=== PATIENT | male | born 1995 | race Hispanic/Latino ===

== ENCOUNTER 2025-01-18 05:01 | Emergency (ER) | payer SELFPAY ==
--- NOTE | 2025-01-18 06:22 | ER ---
Nurse's Notes [facility] Name: Mathieu Vallejo Jr Age: 29 yrs Sex: Male : 1995 Arrival Date: 01/18/2025 Time: 05:01 Bed 15 Private MD: Diagnosis: Cough Presentation: 01/18 05:21 Chief complaint: Patient states: PROD COUGH, CHILLS, LEFT CHEST WALL PAIN. DENIES br2 N/V/D. Coronavirus screen: Client denies travel out of the [place] in the last 14 days. Ebola Screen: Patient denies exposure to infectious person. Initial Sepsis Screen: Does the patient meet any 2 criteria? No. Patient's initial sepsis screen is negative. Does the patient have a suspected source of infection? No. Patient's initial sepsis screen is negative. Risk Assessment: Do you want to hurt yourself or someone else? Patient reports no desire to harm self or others. Onset of symptoms was January 14, 2025. 05:21 Method Of Arrival: Ambulatory br2 05:21 Acuity: CONNIE 3 br2 Triage Assessment: 05:23 General: Appears in no apparent distress. comfortable, Behavior is calm, cooperative. br2 Pain: Complains of pain in anterior aspect of left upper chest Pain currently is 6 out of 10 on a pain scale. Historical: - Allergies: 05:23 No Known Allergies; br2 - PMHx: 05:23 None; br2 - PSHx: 05:23 pacemaker; br2 - Immunization history:: Adult Immunizations not up to date. - Infectious Disease History:: Denies. - Social history:: Smoking status: Patient/guardian denies using tobacco, Patient/guardian denies using alcohol, street drugs. - Family history:: not pertinent. - Hospitalizations: : No recent hospitalization is reported. Screenin:[address] [facility] ED Fall Risk Assessment (Adult) History of falling in the last 3 months, tb4 including since admission No falls in past 3 months (0 pts) Confusion or Disorientation No (0 pts) Intoxicated or Sedated No (0 pts) Impaired Gait No (0 pts) Mobility Assist Device Used No (0 pt) Altered Elimination No (0 pt) Score/Fall Risk Level 0 - 2 = Low Risk Oriented to surroundings, Maintained a safe environment, Educated pt \T\ family on fall prevention, incl call for assistance when getting out of bed. Abuse screen: Denies threats or abuse. Nutritional screening: No deficits noted. Tuberculosis screening: No symptoms or risk factors identified. Assessment: 05:30 Reassessment: Patient is alert, oriented x 3, equal unlabored respirations, skin tb4 warm/dry/pink. See triage note. General: Appears in no apparent distress. Behavior is calm, cooperative, Smells of. Pain: Complains of pain in left clavicle and anterior aspect of left upper chest Pain does not radiate. Pain currently is 6 out of 10 on a pain scale. Quality of pain is described as pressure, Pain began gradually, Is continuous. Neuro: Level of Consciousness is awake, alert, obeys commands, Oriented to person, place, time, situation, [place] are Moves all extremities. Full function Gait is steady. Cardiovascular: Capillary refill < 3 seconds is brisk in right fingers. Respiratory: Reports cough that is non-productive, Airway is patent Trachea midline Respiratory effort is even, unlabored, Respiratory pattern is regular, symmetrical, Breath sounds are clear bilaterally. GI: No signs and/or symptoms were reported involving the gastrointestinal system. : No signs and/or symptoms were reported regarding the genitourinary system. EENT: No signs and/or symptoms were reported regarding the EENT system. Vital Signs: 05:21 BP 144 / 88; Pulse 71; Resp 18 S; Temp 96.5(TE); Pulse Ox 100% on R/A; Weight 90.72 kg; br2 Height 5 ft. 11 in. ; 05:30 BP 156 / 98; Pulse 68; Resp 18; Pulse Ox 97% on R/A; Pain 6/10; tb4 06:48 BP 134 / 78; Pulse 81; Resp 18; Pulse Ox 100% on R/A; tb4 05:21 Body Mass Index 27.89 (90.72 kg, 180.34 cm) br2 05:30 Pain Scale: Adult tb4 ED Course: 05:04 Patient arrived in ED. gm2 05:06 Jay Jackson MD is Attending Physician. rn 05:23 Triage completed. br2 05:23 Arm band placed on right wrist. br2 05:30 Patient has correct armband on for positive identification. Call light in reach. Side tb4 rails up X 1. Client placed on continuous cardiac and pulse oximetry monitoring. NIBP monitoring applied. Door closed. 05:30 EKG done, by ED staff. tb4 05:58 XRAY Chest (1 view) In Process Unspecified. EDMS 06:11 No provider procedures requiring assistance completed. tb4 06:49 Provided Education on: Take medication as prescribed. tb4 06:49 Patient did not have IV access during this emergency room visit. tb4 Administered Medications: 06:35 Drug: AZITHromycin PO 500 mg PO once Route: PO; tb4 06:48 Follow up: Response: No adverse reaction tb4 Medication: 05:30 VIS not applicable for this client. tb4 Outcome: 06:21 Discharge ordered by . rn 06:49 Discharged to home ambulatory, tb4 06:49 Condition: stable 06:49 Discharge instructions given to patient, Instructed on discharge instructions, follow up and referral plans. Demonstrated understanding of instructions, follow-up care, medications, Prescriptions given X 1, 06:50 Patient left the ED. tb4 Signatures: Dispatcher [employer] EDMS Jay Jackson MD MD rn Mitchell, Ginger gm2 Lisset Daugherty RN RN br2 Citlali Crain RN RN tb4
--- NOTE | 2025-01-18 06:22 | EDPHYS ---
Physician Documentation [facility] Name: Mathieu Vallejo Jr Age: 29 yrs Sex: Male : 1995 Arrival Date: 01/18/2025 Time: 05:01 Bed 15 Private MD: ED Physician Jay Jackson HPI: 01/18 05:48 This 29 yrs old Male presents to ER via Ambulatory with complaints of Cough, rn Congestion, slight chest pain./ heart history. 05:48 Patient reports 2 days of cough, congestion, runny nose. Denies shortness of breath. rn Reports productive cough. Patient denies any chest pain. Has a history of hypertrophic cardiomyopathy and status post AICD placement and has not had any issues since then. Patient reports multiple sick contacts and feels sick. Denies shortness of breath. Historical: - Allergies: 05:23 No Known Allergies; br2 - PMHx: 05:23 None; br2 - PSHx: 05:23 pacemaker; br2 - Immunization history:: Adult Immunizations not up to date. - Infectious Disease History:: Denies. - Social history:: Smoking status: Patient/guardian denies using tobacco, Patient/guardian denies using alcohol, street drugs. - Family history:: not pertinent. - Hospitalizations: : No recent hospitalization is reported. ROS: 05:48 Constitutional: Positive for subjective fever and chills Cardiovascular: Negative for rn chest pain, palpitations, and edema, Respiratory: Positive for cough, negative for shortness of breath Abdomen/GI: Negative for abdominal pain, nausea, vomiting, diarrhea, and constipation, MS/Extremity: Negative for injury and deformity, Skin: Negative for injury, rash, and discoloration, Neuro: Negative for headache, weakness, numbness, tingling, and seizure, Exam: 05:48 Constitutional: This is a well developed, well nourished patient who is awake, alert, rn and in no acute distress. Cardiovascular: Regular rate and rhythm. No pulse deficits. Respiratory: Speaking full sentences, unlabored. No increased work of breathing, no retractions or nasal flaring. Skin: No cyanosis 06:10 ECG was reviewed by the Attending Physician. rn Vital Signs: 05:21 BP 144 / 88; Pulse 71; Resp 18 S; Temp 96.5(TE); Pulse Ox 100% on R/A; Weight 90.72 kg; br2 Height 5 ft. 11 in. ; 05:30 BP 156 / 98; Pulse 68; Resp 18; Pulse Ox 97% on R/A; Pain 6/10; tb4 06:48 BP 134 / 78; Pulse 81; Resp 18; Pulse Ox 100% on R/A; tb4 05:21 Body Mass Index 27.89 (90.72 kg, 180.34 cm) br2 05:30 Pain Scale: Adult tb4 MDM: 05:06 Medical Screening Exam initiated rn 06:18 Differential Diagnosis: Bronchitis Upper Respiratory Infection Viral Syndrome rn Pneumonia. Data reviewed: vital signs, nurses notes, radiologic studies, plain films, and as a result, I will discharge patient. Independent interpretation of the following test(s) in the Emergency Department X-Ray: My interpretation is Chest x-ray images negative for pneumonia or pneumothorax per my interpretation. Stable cardiomegaly compared to previous chest x-rays. Care significantly affected by the following chronic conditions: Hypertension. Counseling: I had a detailed discussion with the patient and/or guardian regarding the historical points, exam findings, and any diagnostic results supporting the discharge/admit diagnosis, the presence of at least one elevated blood pressure reading (>120/80) during this emergency department visit, radiology results, the need for outpatient follow up, to return to the emergency department if symptoms worsen or persist or if there are any questions or concerns that arise at home. Special discussion: I discussed with the patient/guardian in detail that at this point there is no indication for admission to the hospital. It is understood, however, that if the symptoms persist or worsen the patient needs to return immediately for re-evaluation. Based on the history and exam findings, there is no indication for further emergent testing or inpatient evaluation. I discussed with the patient/guardian the need to see the primary care provider for further evaluation of the symptoms. 01/18 05:08 Order name: XRAY Chest (1 view); Complete Time: 06:37 rn 01/18 05:15 Order name: EKG; Complete Time: 05:15 rn 01/18 05:15 Order name: EKG - Nurse/Tech; Complete Time: 05:50 rn EC:10 Rate is 62 beats/min. Rhythm is regular. QRS [place] is Normal. [place] interval is normal. QRS rn interval is normal. No Q waves. T waves are Normal. No ST changes noted. Clinical impression: NSR w/ Non-specific ST/T Changes. Interpreted by me. Reviewed by me. Administered Medications: 06:35 Drug: AZITHromycin PO 500 mg PO once Route: PO; tb4 06:48 Follow up: Response: No adverse reaction tb4 Disposition Summary: 01/18/25 06:21 Discharge Ordered Notes: Location: Home rn Problem: new rn Symptoms: have improved rn Condition: Stable rn Diagnosis - Cough rn Followup: rn - With: Private Physician - When: As needed - Reason: Recheck today's complaints, Re-evaluation by your physician Discharge Instructions: - Discharge Summary Sheet rn - Cough, Adult rn Forms: - Medication Reconciliation Form rn - Antibiotic industrial design intern - Prescription Opioid Use rn - Patient Portal Instructions rn - Leadership Thank You Letter rn Prescriptions: - Zithromax Z-Warren 250 mg Oral Tablet - take 1 tablet ORAL route as directed for 5 days Day 1 - take two (2) tablets rn one time. Day 2, 3, 4 , 5 take one (1) tablet once daily.; 6 tablet; Refills: 0, Product Selection Permitted Signatures: Dispatcher [employer] EDMS Jay Jackson MD MD rn Riddle, Belinda, RN RN br2 Citlali Crain RN RN tb4 Corrections: (The following items were deleted from the chart) 05:49 05:48 Patient reports 2 days of cough, congestion, runny nose. Denies shortness of rn breath. Reports productive cough. Patient denies any chest pain. Has a history of hypertrophic cardiomyopathy and status post AICD placement and has not had any issues since then. Patient reports multiple sick contacts and feels sick.. rn
--- NOTE | 2025-01-18 06:29 | RAD REPORT ---
INDICATION: COUGH COMPARISON: No existing relevant imaging studies are available FINDINGS: Single frontal view of the chest was obtained. SUPPORT DEVICES: Left-sided pacemaker in place. HEART/MEDIASTINUM: Heart is enlarged and slightly globular in shape. LUNGS/PLEURA: Lungs are clear. No pleural effusion or pneumothorax. OTHER: No other significant findings. IMPRESSION: Cardiomegaly with slightly globular shape, nonspecific although can be seen with pericardial effusion . Electronically signed by: Andrew Yost DO 01/18/2025 06:15 AM CDT NR Due to temporary technical issues with the [email or web address] reporting system, reports are being rosa d by the in-house radiologist without review as a courtesy to ensure prompt reporting the interpreting radiologist is fully responsible for the content of the report. Transcribed Date/Time: 01/18/2025 6:28 AM
[2025-01-18] MEDS ORDERED: AZITHROMYCIN 250 MG TAB ONE (06:32)
[2025-01-18 06:54] VITALS: TEMP 96.5
[2025-01-18 06:56] VITALS: BP 134/78; O2SAT 100
== END 2025-01-18 06:50 | disposition home or self-care (01) ==
LOC: ER 05:01
DX: R05.9 Cough, unspecified (principal)
CPT/HCPCS: 71045; 93005; 99284